=== PATIENT | male | born 2000 | race African-American/Black ===

== ENCOUNTER 2025-08-29 11:03 | Emergency (ER) | payer OTHER ==
[~2025-08-29] VITALS: Ht 172.7 cm; Wt 70.0 kg
[2025-08-29 11:18] VITALS: O2SAT 100
[2025-08-29] MEDS: BACITRACIN ZINC OINT UDPKT TOP ONE (12:34)
[2025-08-29] MEDS: LIDOCAINE HCL/EPINEPHRINE 1%-EPI 1:100,000 20ML VIAL INFIL ONE (12:34)
[2025-08-29] MEDS: TETANUS, DIPHTHERIA, PERTUSSIS VAC/PF 0.5ML (>10YR OLD) IM ONE (12:34)
[2025-08-29] MEDS ORDERED: BO1 TP (15:06)
[2025-08-29 15:29] VITALS: BP 113/54; PULSE 63; RESP 18; TEMP 36.9; O2SAT 100
== END 2025-08-29 15:32 | disposition home or self-care (01) ==
LOC: ER 11:03
DX: S02.2XXA Fracture of nasal bones, initial encounter for closed fracture (principal); S01.411A Laceration without foreign body of right cheek and temporomandibular area, initial encounter; V03.10XA Pedestrian on foot injured in collision with car, pick-up truck or van in traffic accident, initial encounter; Y93.55 Activity, bike riding; Y92.89 Other specified places as the place of occurrence of the external cause; Y99.8 Other external cause status
CPT/HCPCS: 99285; 70450; 70486; 90715; 12013; 90471; J2004

== ENCOUNTER 2025-09-07 05:57 | Emergency (ER) | payer SELFPAY ==
[~2025-09-07] VITALS: Ht 180.3 cm; Wt 73.0 kg
[~2025-09-07 05:57] MED LIST: BO1 TP
[2025-09-07 06:04] VITALS: TEMP 36.8; O2SAT 100
[2025-09-07 06:29] VITALS: BP 117/39; PULSE 61; RESP 16; O2SAT 100
== END 2025-09-07 06:31 | disposition home or self-care (01) ==
LOC: ER 05:57
DX: S01.81XD Laceration without foreign body of other part of head, subsequent encounter (principal); V29 Motorcycle rider injured in other and unspecified transport accidents
CPT/HCPCS: 99282; Z7610